=== PATIENT | female | born 2000 | race Caucasian/White ===

== ENCOUNTER 2018-01-17 13:40 | Emergency (ER) | payer OTHER ==
--- NOTE | 2018-01-17 14:12 | EDM.PDOC ---
ED HPI GENERAL MEDICAL PROBLEM - General Chief Complaint: Lower Extremity Injury/Pain Stated Complaint: LEFT LEG INJURY/NUMB Time Seen by Provider: 01/17/18 14:08 Source of Information: Reports: Patient History Limitations: Reports: No Limitations - History of Present Illness INITIAL COMMENTS - FREE TEXT/NARRATIVE: 17-year-old female presents to the ED with complaint of numbness and tingling in the distribution of her left lateral leg from the knee to the foot. She states she can't feel her great toe second toe her third toe. All numb. 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 She states this is 6 time that is dislocated. To back into place on her own. As well as she is wearing a knee immobilizer which is short but has metal producing on both the medial and lateral aspects of the brace. She is therefore suffering, peroneal nerve compression which is causing the numbness and tingling in the left lateral foot and leg. She usually wears a brace for a week to 10 days after dislocation to prevent it from dislocating easily again. Onset: Gradual Onset Date: 01/16/18 (Started since she dislocated her kneecap 2 days ago) Duration: Day(s): Location: Reports: Lower Extremity, Left (Left lateral leg and nose and tingling down to her) Quality: Reports: Ache, Other Severity: Moderate (Numbness and tingling) Improves with: Reports: None Worsens with: Reports: None Context: Reports: Other (Has been wearing a knee brace since dislocating her kneecap 2 days ago. Knee brace when we put it back on her leg has a metal component on each side to support the MCL and LCL ligaments but unfortunately is putting direct pressure on the common peroneal nerve over her fibular head.) . 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 She reports the left was dislocated at least 6 times in the past) Social & Family History - Living Situation & Occupation Living situation: Reports: Single Occupation: Employed Review of Systems - Review of Systems Review Of Systems: See Below Constitutional: Reports: No Symptoms Eyes: Reports: No Symptoms Ears: Reports: No Symptoms Nose: Reports: No Symptoms Mouth/Throat: Reports: No Symptoms Respiratory: Reports: No Symptoms Cardiovascular: Reports: No Symptoms GI/Abdominal: Reports: No Symptoms Genitourinary: Reports: No Symptoms Musculoskeletal: Reports: Other (Recent lateral dislocation of her left patella 2 days ago. Recurrent problem for her.) Skin: Reports: No Symptoms Neurological: Reports: Numbness, Paresthesia (Left lower extremity particularly with numbness and tingling in her first second and third toes.), Tingling (In the distribution of the common peroneal nerve left lower extremity) Psychiatric: Reports: No Symptoms ED EXAM, GENERAL - Physical Exam Exam: See Below Exam Limited By: No Limitations General Appearance: Alert, WD/WN, No Apparent Distress Peripheral Pulses: 3+: Posterior Tibial (L), Posterior Tibial (R), Dorsalis Pedis (L), Dorsalis Pedis (R) Neurological: Other ( has decreased sensation in the distribution of the common peroneal nerve particularly on the lateral aspect of her left foot both dorsally and plantar surfaces. She does not have a foot drop.) Skin Exam: Warm, Dry, Intact, Normal Color, No Rash Course - Vital Signs Last Recorded V/S: Last Vital Signs Temp 36.3 C 01/17/18 13:51 Pulse 109 H 01/17/18 13:51 Resp 16 01/17/18 13:51 BP 126/73 01/17/18 13:51 Pulse Ox 100 01/17/18 13:51 - Radiology Interpretation Free Text/Narrative:: 17-year-old female presents to the ED with numbness and tingling in the distribution of the common peroneal nerve left lower extremity. Of note she dislocated her left kneecap for the 6 time 2 days ago. She is wearing a short knee splint which contains metal bars to support the medial collateral ligament and the lateral collateral ligament. She usually wears this for a week to 10 days after she dislocated her patella which occurs almost once a year. When I ask up with the brace on identify that the metal component of the brace is pushing down on the common peroneal nerve over her fibular head. This is the source of her common peroneal nerve palsy and dysfunction. She will therefore discontinue using the brace and use a tape to keep keeping it In position and prevent it from this recent dislocating for the next 10 days. Her seizures and function should return over the next 3-5 days. 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 This is due to compression of the common peroneal nerve which is up near your knee over top of the fibula bone. Patient dislocation of your patella to the left side is been a recurrent problem for you may do start wearing a knee brace which contains steel supports to support the medial and lateral collateral ligaments of the knee. Unfortunately part of the braces pushing down on the common peroneal nerve of your left knee which is causing the numbness and tingling and perhaps even some weakness in the foot musculature has become peroneal nerve helps the Achilles tendon function. I would suggest to stop wearing the brace and use K tape as we discussed to support her knee from recurrent dislocation of the patella. As we discussed a vigorous exercise program to try and strengthen the medial quadriceps musculature is in order. There are surgical managements for recurrence dislocations of the kneecaps but I would opt for strengthen the musculature long before pursuing a surgical avenue of treatment.
== END 2018-01-17 14:42 | disposition home or self-care (01) ==
LOC: JD.ED 13:40
DX: G57.82 Other specified mononeuropathies of left lower limb (principal); Z79.899 Other long term (current) drug therapy
CPT/HCPCS: 99283; 99284

== ENCOUNTER 2021-04-16 06:56 | Inpatient (IN) | payer OTHER ==
[2021-04-16] MEDS ORDERED: Lidocaine 1% 50 ML MDV INJECT ONE (08:16)
[2021-04-16] MEDS ORDERED: Famotidine 20 MG Tab PO PRN (08:16)
[2021-04-16] MEDS ORDERED: Nalbuphine 10 MG/1 ML Vial IVPUSH PRN (08:16)
[2021-04-16] MEDS ORDERED: Ondansetron 4 MG/2 ML SDV IVPUSH PRN (08:16)
[2021-04-16] MEDS ORDERED: Calcium Carbonate 500 MG Tab.Chew PO PRN (08:16)
[2021-04-16] MEDS ORDERED: Oxytocin/Lactated Ringers 10 UNIT/1,000 ML BAG IV SCH ×2 (08:30)
--- NOTE | 2021-04-16 08:35 | PCM.LDHP ---
L&D History of Present Illness - General Date of Service: 04/16/21 Admit Problem/Dx: Patient Status Order with Admit Dx/Problem 04/16/21 08:16 Patient Status [ADT] Routine Admission Diagnosis/Problem Admission Diagnosis/Problem Source of Information: Patient History Limitations: Reports: No Limitations - History of Present Illness Introduction:: 20 yo at 39+2 weeks gestation admitted for elective induction of labor. She is GBS negative, blood type A +. She did have COVID-19 infection and was treated with Monoclonal Antibody IV infusion on 03/15/21 and recovered without complication. She has had Influenza and Tdap vaccines. Her last ultrasound on 03/28/21 revealed baby with EFW of 5 lb 15 oz (26%), BPP 8/8 and cephalic. labs showed RPR, HBsAg, HIV and Hep C all negative. GC/CT swabs negative. Good antibodies to Rubella and Varicella. She did the Prequel test and negative for Trisomies and XY sex chromosomes. 1 hour glucola was mildly elevated at 144 but 3 hour GTT was wnl and no elevated values. She does plan to breastfeed and would like baby circumcised. On admission, she was not having any contractions, NST category 1. Cervix 3 cm, 80% effaced, vertex presentation and 0 station. AROM was performed for small amount of fluid that looked clear, maybe a hint of meconium, will monitor further leakage. Will also start pitocin IV per protocol. - Related Data Allergies/Adverse Reactions: Allergies Allergy/AdvReac Type Severity Reaction Status Date / Time No Known Allergies Allergy Verified 01/17/18 13:48 Home Medications: Home Meds Vit No.78/Iron/Fa [Prenatabs FA] 1 tab PO DAILY 04/13/21 [History] Past Medical History - Past Health History Medical/Surgical History: Denies Medical/Surgical History HEENT History: Reports: Impaired Vision Musculoskeletal History: Reports: Other (See Below) Other Musculoskeletal History: left knee dislocations - Past Surgical History HEENT Surgical History: Reports: Oral Surgery Social & Family History - Family History Family Medical History: No Pertinent Family History - Tobacco Use Tobacco Use Within Last Twelve Months: Vaping (Stopped vaping with ) - Caffeine Use Caffeine Use: Reports: None - Alcohol Use Alcohol Use History: Yes Alcohol Use in Last Twelve Months: Yes Alcohol Use Comment: No alcohol during - Recreational Drug Use Recreational Drug Use: Yes Drug Use in Last 12 Months: Yes Recreational Drug Type: Reports: Marijuana/Hashish Recreational Drug Last Use: Prior to . Denies use during - Living Situation & Occupation Living situation: Reports: Single Occupation: Employed H&P Review of Systems - Review of Systems: Review Of Systems: See Below General: Reports: No Symptoms HEENT: Reports: No Symptoms Pulmonary: Reports: No Symptoms Cardiovascular: Reports: No Symptoms Gastrointestinal: Reports: No Symptoms Genitourinary: Reports: No Symptoms Musculoskeletal: Reports: No Symptoms Skin: Reports: No Symptoms Psychiatric: Reports: No Symptoms Neurological: Reports: No Symptoms Hematologic/Lymphatic: Reports: No Symptoms Immunologic: Reports: No Symptoms L&D Exam - Exam Exam: See Below - OB Specific Contraction Frequency (min): No contractions on admission Movement: Active Heart Tones: Present Heart Tones per Min: 140 Heart Rate (FHR) Variability: Moderate (6-25 bpm) Presentation: Vertex Estimated Weight: 7 lb - Freeman Score Freeman Score Cervix Position: Anterior Freeman Score Consistency: Soft Freeman Score Effacement: >80% Freeman Score Dilation: 3-4 cm Freeman Score 's Station: -1 ,0 Freeman Score Total: 11 - Exam General: Alert, Oriented, Cooperative HEENT: Mucosa Moist & [place], Pupils Equal Neck: Supple, Trachea Midline Lungs: Normal Respiratory Effort Cardiovascular: Regular Rate, Regular Rhythm GI/Abdominal Exam: Normal Bowel Sounds, Soft Rectal Exam: Deferred Genitourinary: Normal external exam, Enlarged uterus Back Exam: Normal Inspection, Full Range of Motion Extremities: Normal Inspection, No Pedal Edema Skin: Warm, Dry, Intact Neurological: Cranial Nerves Intact Psychiatric: Alert, Normal Affect, Normal Mood - Problem List (1) 39 weeks gestation of SNOMED Code(s): 74234761 ICD Code: Z3A.39 - 39 WEEKS GESTATION OF Status: Acute Current Visit: Yes (2) Encounter for elective induction of labor SNOMED Code(s): 598460926 ICD Code: Z34.90 - ENCNTR FOR SUPRVSN OF NORMAL , UNSP, UNSP TRIMESTER Status: Acute Current Visit: Yes (3) Personal history of COVID-19 SNOMED Code(s): 955995791187388041, 466434366473185607 ICD Code: Z86.16 - PERSONAL HISTORY OF COVID-19 Status: Acute Current Visit: Yes Problem List Initiated/Reviewed/Updated: Yes Orders Last 24hrs: Active Orders 24 hr Category Date Time Status Patient Status [ADT] Routine ADT 04/16/21 08:16 Ordered Activity as Tolerated [RC] PFP Care 04/16/21 08:16 Ordered Communication Order [RC] ASDIRECTED Care 04/16/21 08:16 Ordered Heart Tones [RC] ASDIRECTED Care 04/16/21 08:16 Ordered Non Stress Test [RC] PER UNIT ROUTINE Care 04/16/21 08:16 Ordered Intake and Output [RC] QSHIFT Care 04/16/21 08:17 Ordered Notify Provider [RC] PFP Care 04/16/21 08:16 Ordered Notify Provider [RC] PRN Care 04/16/21 08:16 Ordered Peripheral IV Care [RC] . DIRECTED Care 04/16/21 08:16 Ordered Vital Signs [RC] PER UNIT ROUTINE Care 04/16/21 08:16 Ordered Regular Diet [DIET] Diet 04/16/21 Breakfast Ordered CBC W/O DIFF,HEMOGRAM [HEME] Stat Lab 04/16/21 08:16 Ordered DRUG SCREEN, URINE [URCHEM] Stat Lab 04/16/21 08:16 Ordered RAPID PLASMA REAGIN,RPR [CHEM] Routine Lab 04/16/21 08:16 Ordered TYPE AND SCREEN [BBK] Stat Lab 04/16/21 08:16 Ordered Calcium Carbonate [Tums] Med 04/16/21 08:16 Ordered 1,000 mg PO Q2H PRN Famotidine [Pepcid] Med 04/16/21 08:16 Ordered 20 mg PO Q12H PRN Lactated Ringers [Ringers, Lactated] 1,000 ml Med 04/16/21 08:30 Ordered IV ASDIRECTED Lidocaine 1% [Xylocaine 1%] Med 04/16/21 08:16 Once 20 ml INJECT ONETIME ONE Nalbuphine [Nubain] Med 04/16/21 08:16 Ordered 10 mg IVPUSH Q2H PRN Ondansetron [Zofran] Med 04/16/21 08:16 Ordered 4 mg IVPUSH Q4H PRN Oxytocin/Lactated Ringers [Pitocin in LR 10 Units/1,000 Med 04/16/21 08:30 Ordered ML] 10 unit in 1,000 ml IV .CONTINUOUS Oxytocin/Lactated Ringers [Pitocin in LR 10 Units/1,000 Med 04/16/21 08:30 Ordered ML] 10 unit in 1,000 ml IV TITRATE Sodium Chloride 0.9% [Saline Flush] Med 04/16/21 09:00 Ordered 10 ml FLUSH 0900,2100 Electronic Heart Tones Ext w TOCO [WOMSER] Ot 04/16/21 08:16 Ordered Routine Electronic Heart Tones Internal [WOMSER] Per Unit Ot 04/16/21 08:16 Ordered Routine Peripheral IV Insertion Adult [OM.PC] Routine Ot 04/16/21 08:16 Ordered Telemetry Monitoring [WOMSER] Routine Ot 04/16/21 08:16 Ordered Resuscitation Status Routine Resus Stat 04/16/21 08:16 Ordered Medication Orders Calcium Carbonate/Glycine (Calcium Carbonate 500 Mg Tab.Chew) 1,000 mg PO Q2H PRN PRN Reason: Indigestion Famotidine (Famotidine 20 Mg Tab) 20 mg PO Q12H PRN PRN Reason: Heartburn Oxytocin/Lactated Ringer's (Pitocin In Lr 10 Units/1,000 Ml) 10 unit in 1,000 mls @ 12 mls/hr IV TITRATE STEPHANIE; Protocol Oxytocin/Lactated Ringer's (Pitocin In Lr 10 Units/1,000 Ml) 10 unit in 1,000 mls @ 500 mls/hr IV .CONTINUOUS STEPHANIE Lactated Ringer's (Ringers, Lactated) 1,000 mls @ 100 mls/hr IV ASDIRECTED [facility] Lidocaine HCl (Lidocaine 1% 50 Ml Mdv) 20 ml INJECT ONETIME ONE Stop: 04/16/21 08:17 Nalbuphine HCl (Nalbuphine 10 Mg/1 Ml Vial) 10 mg IVPUSH Q2H PRN PRN Reason: Pain Ondansetron HCl (Ondansetron 4 Mg/2 Ml Sdv) 4 mg IVPUSH Q4H PRN PRN Reason: Nausea/Vomiting Sodium Chloride (Sodium Chloride 0.9% 10 Ml Syringe) 10 ml FLUSH 0900,2100 [facility] Assessment/Plan Comment:: 20 yo at 39+2 weeks gestation admitted for elective induction of labor with favorable cervix. Freeman score is 11. GBS neg, blood type A pos. Plans to breast feed. Plan - pitocin induction per protocol and AROM also performed at 0815 to augment induction. Expectant management. Anticipate vaginal delivery. Would like to try natural childbirth without pain meds. Skin to skin after delivery if appropriate and delayed cord clamping. Plan circumcision of baby boy.
[2021-04-16] MEDS: Lactated Ringers 1,000 ML IV SCH ×3 (08:46→12:32)
[2021-04-16] MEDS ORDERED: Sodium Chloride 0.9% 10 ML Syringe FLUSH SCH (09:00)
[2021-04-16] MEDS ORDERED: fentaNYL 100 MCG/2 ML SDV EPIDUR PRN (10:32)
[2021-04-16] MEDS ORDERED: Bupivacaine/fentaNYL/NS 100 ML Bag EPIDUR PRN (10:32)
[2021-04-16] MEDS ORDERED: Lidocaine 1.5% with EPINEPHrine 1:200,000 5 ML Amp ONE (10:32)
[2021-04-16] MEDS ORDERED: diphenhydrAMINE 50 MG/ML SDV IVPUSH PRN (10:32)
[2021-04-16] MEDS ORDERED: ePHEDrine 50 MG/ML SDV IVPUSH PRN (10:32)
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
--- NOTE | 2021-04-16 16:42 | PCM.DEL ---
L & D Note - General Info Date of Service: 04/16/21 Mother's Due Date: 04/21/21 - Delivery Note Labor: Augmented by Oxytocin, Induced by ARM Cervical Ripening Method: Oxytocin Delivery Outcome: Livebirth Delivery Method: Spontaneous Vaginal Delivery-Single Infant Delivery Mode: Spontaneous Presentation: Right Occiput Anterior (GRISEL) Nuchal Cord: None Prep: Povidone-Iodine (Betadine Anesthesia Type: Epidural Anesthetic: Lidocaine (Xylocaine) 1% Plain Local Anesthetic Volume: Other (20 ml) Amniotic Fluid Description: Clear Episiotomy Type: None Laceration: 2nd Degree Suture type: Vicryl Suture size: 3-0 Placenta: Intact, Spontaneous Cord: 3 Vessels Estimated Blood Loss: 250 Resuscitation Needed: No : Bulb Syringe, Stimulated, Warmed, [place] Used Provider: Paty Foster Score 1 min: 8 Score 5 min: 9 Delivery Comments (Free Text/Narrative):: 20 yo at 39+2 weeks gestation admitted for elective induction of labor. She is GBS negative, blood type A +. She did have COVID-19 infection and was treated with Monoclonal Antibody IV infusion on 03/15/21 and recovered without complication. She has had Influenza and Tdap vaccines. Her last ultrasound on 03/28/21 revealed baby with EFW of 5 lb 15 oz (26%), BPP 8/8 and cephalic. labs showed RPR, HBsAg, HIV and Hep C all negative. GC/CT swabs negative. Good antibodies to Rubella and Varicella. She did the Prequel test and negative for Trisomies and XY sex chromosomes. 1 hour glucola was mildly elevated at 144 but 3 hour GTT was wnl and no elevated values. She does plan to breastfeed and would like baby circumcised. On admission, she was not having any contractions, NST category 1. Cervix 3 cm, 80% effaced, vertex presentation and 0 station. AROM was performed for small amount of fluid that looked clear, maybe a hint of meconium, will monitor further leakage. Will also start pitocin IV per protocol. She started having contractions after the AROM and pitocin was initially started but then stopped due to tachysystole. She requested epidural and it was placed at noon and she had fair relief, but continued to feel contractions on the right side. Contractions started spacing out and pitocin was restarted. She progressed well and was completely dilated at about 1430 and we prepared for pushing. She started pushing at about 1445 and did well and baby tolerated second stage of labor well. Head was delivered from GRISEL presentation, there was no nuchal cord and then the rest of the baby delivered without problem. Time of delivery was 1548 and we had a baby boy. He cried at the perineum, was placed skin to skin on mother's abdomen and drying and suction and stimulation performed. Once the cord stopped pulsating, it was clamped and cut. Apgars 8 and 9 at 1 and 5 minutes respectively. weight was 3510 grams (7 lb 12 oz). Placenta delivered spontaneously at 1552 and was complete. 3 vessels in the cord. Pitocin IV bolus was started. She had a second degree perineal laceration that was repaired in the usual manner with 3-0 Vicryl. Some blood clots were expressed from the uterus after repair was completed and EBL was 200 ml. Both Mom and baby were left in the delivery room in stable condition. Mom plans to breastfeed. Induction Criteria - Freeman Score Freeman Score Dilation: 3-4 cm Freeman Score Effacement: >80% Freeman Score Infant's Station: -1 ,0 Freeman Score Consistency: Soft Freeman Score Cervix Position: Anterior Freeman Score Total: 11 Freeman Score Presenting Part: Reports: Cephalic - Induction Gestational Age >/= 39 wks: Yes Estimated Pelvis: Reports: Adequate Reassuring Monitoring Strip: Yes Absence of Tachy Systole: Yes - Augmentation Estimated Pelvis: Reports: Adequate Weight Estimated:: Reports: AGA Reassuring Monitoring Strip: Yes Absence of Tachy Systole: Yes - General Info Date of Service: 04/16/21 Admission Dx/Problem (Free Text): Patient Status Order with Admit Dx/Problem 04/16/21 08:16 Patient Status [ADT] Routine Admission Diagnosis/Problem Admission Diagnosis/Problem Functional Status: Reports: Pain Controlled, Tolerating Diet - Review of Systems General: Reports: No Symptoms HEENT: Reports: No Symptoms Pulmonary: Reports: No Symptoms Cardiovascular: Reports: No Symptoms Gastrointestinal: Reports: No Symptoms Genitourinary: Reports: No Symptoms Musculoskeletal: Reports: No Symptoms Skin: Reports: No Symptoms Neurological: Reports: No Symptoms Psychiatric: Reports: No Symptoms - Patient Data Vitals - Most Recent: Last Vital Signs Temp 36.5 C 04/16/21 07:20 Pulse Resp 16 04/16/21 07:20 BP 122/77 04/16/21 07:20 Pulse Ox 97 04/16/21 07:20 Weight - Most Recent: 76.521 kg I&O - Last 24 Hours: Intake & Output 04/16/21 04/16/21 04/16/21 06:59 14:59 22:59 Intake Total 2000 Output Total 700 Balance 1300 Lab Results Last 24 Hours: Laboratory Results - last 24 hr 04/16/21 04/16/21 04/16/21 Range/Units 08:35 08:35 08:45 WBC 17.13 H (3.98-10.04) K/mm3 RBC 4.07 (3.98-5.22) M/mm3 Hgb 12.4 (11.2-15.7) gm/dl Hct 37.7 (34.1-44.9) % MCV 92.6 (79.4-94.8) fl MCH 30.5 (25.6-32.2) pg MCHC 32.9 (32.2-35.5) g/dl RDW Std Deviation 47.6 H (36.4-46.3) fL Plt Count 267 (182-369) K/mm3 MPV 10.5 (9.4-12.3) fl Urine Opiates Screen Negative (UAJCHR=523) Ur Buprenorphine Scrn Negative (CUTOFF=10) Ur Oxycodone Screen Negative (DWD5JW=479) Urine Methadone Screen Negative (BGFMTH=543) Ur Propoxyphene Screen Negative (LKCCRI=270) Ur Barbiturates Screen Negative (ZJKPRN=943) Ur Tricyclics Screen Negative (MMOYWL=484) Ur Phencyclidine Scrn Negative (CUTOFF=25) Ur Amphetamine Screen Negative (LLKDIG=176) U Methamphetamines Scrn Negative (VIUBZB=682) U Benzodiazepines Scrn Negative (VRVTPK=721) U Cocaine Metab Screen Negative (GXFLTJ=579) U Marijuana (THC) Screen Negative (CUTOFF=50) Blood Type A POSITIVE Gel Antibody Screen Negative Med Orders - Current: Current Medications Calcium Carbonate/Glycine (Calcium Carbonate 500 Mg Tab.Chew) 1,000 mg PO Q2H PRN PRN Reason: Indigestion Diphenhydramine HCl (Diphenhydramine 50 Mg/Ml Sdv) 25 mg IVPUSH Q6H PRN PRN Reason: pruritis Ephedrine Sulfate (Ephedrine 50 Mg/Ml Sdv) 5 mg IVPUSH ASDIRECTED PRN PRN Reason: Hypotension Famotidine (Famotidine 20 Mg Tab) 20 mg PO Q12H PRN PRN Reason: Heartburn Last Admin: 04/16/21 08:35 Dose: 20 mg Documented by: Fentanyl (Fentanyl 100 Mcg/2 Ml Sdv) 100 mcg EPIDUR Q3H PRN PRN Reason: Pain Last Admin: 04/16/21 11:26 Dose: 100 mcg Documented by: Fentanyl/Bupivacaine HCl (Bupivacaine/Fentanyl/Ns 100 Ml Bag) 100 ml EPIDUR ASDIRECTED PRN PRN Reason: Pain Last Admin: 04/16/21 11:26 Dose: 100 ml Documented by: Oxytocin/Lactated Ringer's (Pitocin In Lr 10 Units/1,000 Ml) 10 unit in 1,000 mls @ 12 mls/hr IV TITRATE STEPHANIE; Protocol Last Titration: 04/16/21 15:58 Dose: 166.5 munits/min, 999 mls/hr Documented by: Oxytocin/Lactated Ringer's (Pitocin In Lr 10 Units/1,000 Ml) 10 unit in 1,000 mls @ 500 mls/hr IV .CONTINUOUS STEPHANIE Lactated Ringer's (Ringers, Lactated) 1,000 mls @ 100 mls/hr IV ASDIRECTED STEPHANIE Last Admin: 04/16/21 12:32 Dose: 100 mls/hr Documented by: Nalbuphine HCl (Nalbuphine 10 Mg/1 Ml Vial) 10 mg IVPUSH Q2H PRN PRN Reason: Pain Ondansetron HCl (Ondansetron 4 Mg/2 Ml Sdv) 4 mg IVPUSH Q4H PRN PRN Reason: Nausea/Vomiting Last Admin: 04/16/21 11:00 Dose: 4 mg Documented by: Sodium Chloride (Sodium Chloride 0.9% 10 Ml Syringe) 10 ml FLUSH 0900,2100 STEPHANIE Last Admin: 04/16/21 10:20 Dose: Not Given Documented by: Discontinued Medications Lidocaine HCl (Lidocaine 1% 50 Ml Mdv) 20 ml INJECT ONETIME ONE Stop: 04/16/21 08:17 Last Admin: 04/16/21 15:58 Dose: 20 ml Documented by: - Exam Urinary Catheter Total Time: 0Days 1Hours General: Alert, Oriented, Cooperative, No Acute Distress HEENT: Pupils Equal, Mucous Membr. Moist/[place] Neck: Supple Lungs: Normal Respiratory Effort Cardiovascular: Regular Rate, Regular Rhythm GI/Abdominal Exam: Normal Bowel Sounds, No Distention (Female) Exam: Enlarged Uterus (Uterus firm, below umbilicus), Vaginal Bleeding Back Exam: Normal Inspection, Full Range of Motion Extremities: Normal Inspection, Normal Range of Motion, No Pedal Edema, Normal Capillary Refill Skin: Warm, Dry, Intact Neurological: No New Focal Deficit Psy/Mental Status: Alert, Normal Affect, Normal Mood - Problem List & Annotations (1) 39 weeks gestation of SNOMED Code(s): 77410021 Code(s): Z3A.39 - 39 WEEKS GESTATION OF Status: Acute Current Visit: Yes (2) Encounter for elective induction of labor SNOMED Code(s): 105321366 Code(s): Z34.90 - ENCNTR FOR SUPRVSN OF NORMAL , UNSP, UNSP TRIMESTER Status: Acute Current Visit: Yes (3) Personal history of COVID-19 SNOMED Code(s): 268571598384133781, 193046163986150470 Code(s): Z86.16 - PERSONAL HISTORY OF COVID-19 Status: Acute Current Visit: Yes (4) Normal spontaneous vaginal delivery SNOMED Code(s): 82770063, 150018010 Code(s): O80 - ENCOUNTER FOR FULL-TERM UNCOMPLICATED DELIVERY Status: Acute Current Visit: Yes - Problem List Review Problem List Initiated/Reviewed/Updated: Yes - My Orders Last 24 Hours: My Active Orders 04/16/21 Breakfast Regular Diet [DIET] 04/16/21 08:16 Patient Status [ADT] Routine Activity as Tolerated [RC] PFP Communication Order [RC] ASDIRECTED Heart Tones [RC] ASDIRECTED Notify Provider [RC] PRN Calcium Carbonate [Tums] 1,000 mg PO Q2H PRN Famotidine [Pepcid] 20 mg PO Q12H PRN Nalbuphine [Nubain] 10 mg IVPUSH Q2H PRN Ondansetron [Zofran] 4 mg IVPUSH Q4H PRN Electronic Heart Tones Ext w TOCO [WOMSER] Routine Electronic Heart Tones Internal [WOMSER] Per Unit Routine Peripheral IV Insertion Adult [OM.PC] Routine Telemetry Monitoring [WOMSER] Routine Resuscitation Status Routine 04/16/21 08:17 Intake and Output [RC] QSHIFT 04/16/21 08:30 Lactated Ringers [Ringers, Lactated] 1,000 ml IV ASDIRECTED Oxytocin/Lactated Ringers [Pitocin in LR 10 Units/1,000 ML] 10 unit in 1,000 ml IV .CONTINUOUS Oxytocin/Lactated Ringers [Pitocin in LR 10 Units/1,000 ML] 10 unit in 1,000 ml IV TITRATE 04/16/21 08:35 RAPID PLASMA REAGIN,RPR [CHEM] Routine 04/16/21 09:00 Sodium Chloride 0.9% [Saline Flush] 10 ml FLUSH 0900,2100 04/16/21 16:28 Patient Status Manage Transfer [TRANSFER] Routine - Assessment Assessment:: Term at 39+2 weeks, after elective induction. GBS negative. Blood type A pos. Second degree perineal laceration. EBL 200 ml - Plan Plan:: 1. Routine care 2. support and education. 3. Plan for circumcision for baby.
[2021-04-16] MEDS ORDERED: Acetaminophen 325 MG Tab PO PRN (17:49)
[2021-04-16] MEDS ORDERED: Benzocaine/Menthol 20%-0.5% Spray 78 GM Cannister TOP PRN (17:49)
[2021-04-16] MEDS: Docusate Sodium 100 MG Cap PO PRN (18:03)
[2021-04-16] MEDS: Ibuprofen 600 MG Tab PO PRN (18:03)
[2021-04-16] MEDS: Witch Hazel Medicated Pads 40/Jar TOP PRN (18:03)
[2021-04-17] MEDS: Ibuprofen 600 MG Tab PO PRN ×2 (06:27→20:36)
--- NOTE | 2021-04-17 13:55 | PCM.PNPP ---
- General Info Date of Service: 04/17/21 Admission Dx/Problem (Free Text): Patient Status Order with Admit Dx/Problem 04/16/21 08:16 Patient Status [ADT] Routine Admission Diagnosis/Problem Admission Diagnosis/Problem Functional Status: Reports: Pain Controlled, Tolerating Diet, Ambulating, Urinating - Review of Systems General: Reports: No Symptoms HEENT: Reports: No Symptoms Pulmonary: Reports: No Symptoms Cardiovascular: Reports: No Symptoms Gastrointestinal: Reports: No Symptoms Genitourinary: Reports: No Symptoms, Other (Uterine cramping during . ) Musculoskeletal: Reports: No Symptoms Skin: Reports: No Symptoms Neurological: Reports: No Symptoms Psychiatric: Reports: No Symptoms - General Info Date of Service: 04/17/21 - Patient Data Vital Signs - Most Recent: Last Vital Signs Temp 36.9 C 04/17/21 04:33 Pulse 71 04/17/21 04:33 Resp 12 04/17/21 04:33 BP 101/70 04/17/21 04:33 Pulse Ox 97 04/17/21 04:33 Weight - Most Recent: 76.521 kg I&O - Last 24 Hours: Intake & Output 04/16/21 04/17/21 04/17/21 22:59 06:59 14:59 Intake Total 2500 Output Total 107 Balance 2393 Lab Results - Last 24 Hours: Laboratory Results - last 24 hr 04/16/21 04/17/21 Range/Units 08:35 07:01 WBC 21.76 H (3.98-10.04) K/mm3 RBC 3.85 L (3.98-5.22) M/mm3 Hgb 11.6 (11.2-15.7) gm/dl Hct 35.9 (34.1-44.9) % MCV 93.2 (79.4-94.8) fl MCH 30.1 (25.6-32.2) pg MCHC 32.3 (32.2-35.5) g/dl RDW Std Deviation 47.8 H (36.4-46.3) fL Plt Count 266 (182-369) K/mm3 MPV 10.6 (9.4-12.3) fl RPR Non-reactive (NONREACTIVE) Med Orders - Current: Current Medications Acetaminophen (Acetaminophen 325 Mg Tab) 650 mg PO Q4H PRN PRN Reason: mild pain or fever Benzocaine/Menthol (Benzocaine/Menthol 20%-0.5% [place] 78 Gm Cannister) 0 gm TOP ASDIRECTED PRN PRN Reason: Perineal Comfort Measure Last Admin: 04/16/21 18:03 Dose: 1 canister Documented by: Docusate Sodium (Docusate Sodium 100 Mg Cap) 100 mg PO BID PRN PRN Reason: Constipation Last Admin: 04/16/21 18:03 Dose: 100 mg Documented by: Oxytocin/Lactated Ringer's (Pitocin In Lr 10 Units/1,000 Ml) 10 unit in 1,000 mls @ 500 mls/hr IV .CONTINUOUS STEPHANIE Last Admin: 04/16/21 16:44 Dose: 500 mls/hr Documented by: Ibuprofen (Ibuprofen 600 Mg Tab) 600 mg PO Q6H PRN PRN Reason: Mild pain or fever Last Admin: 04/17/21 06:27 Dose: 600 mg Documented by: Prenat Multivit/[place]/Iron/Folic Ac ( Multivitamin With Calcium/Folic Acid/Iron Tab) 1 each PO DAILY [facility] Jeniffer Oro (Witch Preethi Medicated Pads 40/Jar) 1 pad TOP ASDIRECTED PRN PRN Reason: Perineal Comfort Measure Last Admin: 04/16/21 18:03 Dose: 1 tub Documented by: Discontinued Medications Calcium Carbonate/Glycine (Calcium Carbonate 500 Mg Tab.Chew) 1,000 mg PO Q2H PRN PRN Reason: Indigestion Diphenhydramine HCl (Diphenhydramine 50 Mg/Ml Sdv) 25 mg IVPUSH Q6H PRN PRN Reason: pruritis Ephedrine Sulfate (Ephedrine 50 Mg/Ml Sdv) 5 mg IVPUSH ASDIRECTED PRN PRN Reason: Hypotension Famotidine (Famotidine 20 Mg Tab) 20 mg PO Q12H PRN PRN Reason: Heartburn Last Admin: 04/16/21 08:35 Dose: 20 mg Documented by: Fentanyl (Fentanyl 100 Mcg/2 Ml Sdv) 100 mcg EPIDUR Q3H PRN PRN Reason: Pain Last Admin: 04/16/21 11:26 Dose: 100 mcg Documented by: Fentanyl/Bupivacaine HCl (Bupivacaine/Fentanyl/Ns 100 Ml Bag) 100 ml EPIDUR ASDIRECTED PRN PRN Reason: Pain Last Admin: 04/16/21 11:26 Dose: 100 ml Documented by: Oxytocin/Lactated Ringer's (Pitocin In Lr 10 Units/1,000 Ml) 10 unit in 1,000 mls @ 12 mls/hr IV TITRATE STEPHANIE; Protocol Last Titration: 04/16/21 15:58 Dose: 166.5 munits/min, 999 mls/hr Documented by: Lactated Ringer's (Ringers, Lactated) 1,000 mls @ 100 mls/hr IV ASDIRECTED [facility] Last Admin: 04/16/21 12:32 Dose: 100 mls/hr Documented by: Lidocaine HCl (Lidocaine 1% 50 Ml Mdv) 20 ml INJECT ONETIME ONE Stop: 04/16/21 08:17 Last Admin: 04/16/21 15:58 Dose: 20 ml Documented by: Nalbuphine HCl (Nalbuphine 10 Mg/1 Ml Vial) 10 mg IVPUSH Q2H PRN PRN Reason: Pain Ondansetron HCl (Ondansetron 4 Mg/2 Ml Sdv) 4 mg IVPUSH Q4H PRN PRN Reason: Nausea/Vomiting Last Admin: 04/16/21 11:00 Dose: 4 mg Documented by: Sodium Chloride (Sodium Chloride 0.9% 10 Ml Syringe) 10 ml FLUSH 0900,2100 [facility] Last Admin: 04/16/21 10:20 Dose: Not Given Documented by: - Infant Interaction Disposition, : [place] at Bedside Interaction: Holding Feeding: Attempted ; Nursed Fair/Poor, Difficulty with Latch-on Support Person: Significant Other - Recovery Exam Fundal Tone: Firm Fundal Level: 2 Fingerbreadths Below Umbilicus Fundal Placement: Midline Lochia Amount: Scant Lochia Color: Rubra/Red Perineum Description: Other (see below) Other Perinuem Description: Second degree laceration Bladder Status: Voiding Urinary Elimination: Voided - Exam General: Alert, Oriented, No Acute Distress HEENT: Pupils Equal, Pupils Reactive, Mucous Membr. Moist/[place] Neck: Supple Lungs: Normal Respiratory Effort Cardiovascular: Regular Rate, Regular Rhythm GI/Abdominal Exam: Normal Bowel Sounds, Soft, No Distention Extremities: Normal Range of Motion, Non-Tender, No Pedal Edema, Normal Capillary Refill Skin: Warm, Dry, Intact Wound/Incisions: Healing Well Neurological: No New Focal Deficit Psy/Mental Status: Alert, Normal Affect, Normal Mood - Problem List & Annotations (1) 39 weeks gestation of SNOMED Code(s): 61368459 Code(s): Z3A.39 - 39 WEEKS GESTATION OF Status: Acute Current Visit: Yes (2) Encounter for elective induction of labor SNOMED Code(s): 099748359 Code(s): Z34.90 - ENCNTR FOR SUPRVSN OF NORMAL , UNSP, UNSP TRIMESTER Status: Acute Current Visit: Yes (3) Personal history of COVID-19 SNOMED Code(s): 391141224924733967, 398028429888538012 Code(s): Z86.16 - PERSONAL HISTORY OF COVID-19 Status: Acute Current Visit: Yes (4) Normal spontaneous vaginal delivery SNOMED Code(s): 99288985, 392163214 Code(s): O80 - ENCOUNTER FOR FULL-TERM UNCOMPLICATED DELIVERY Status: Acute Current Visit: Yes (5) Breast feeding status of mother SNOMED Code(s): 946794555 Code(s): Z39.1 - ENCOUNTER FOR CARE AND EXAMINATION OF LACTATING MOTHER Status: Acute Current Visit: Yes - Problem List Review Problem List Initiated/Reviewed/Updated: Yes - My Orders Last 24 Hours: My Active Orders 04/16/21 17:49 Acetaminophen [TylenoL] 650 mg PO Q4H PRN Benzocaine/Menthol [Dermoplast Pain Relief 20%-0.5% [place]] See Dose Instructions TOP ASDIRECTED PRN Docusate Sodium [Colace] 100 mg PO BID PRN Ibuprofen [Motrin] 600 mg PO Q6H PRN witch Preethi [Tucks] 1 pad TOP ASDIRECTED PRN Heat Therapy [OM.PC] PRN 04/16/21 17:49 Patient Status [ADT] Routine Activity as Tolerated [RC] PER UNIT ROUTINE May Shower [RC] ASDIRECTED Up ad [place] [RC] ASDIRECTED Vital Signs [RC] 03,09,15,21 Assess Lochia [WOMSER] Per Unit Routine Assess Uterine Involution [WOMSER] Per Unit Routine Breast Pump [WOMSER] Per Unit Routine Medication Administration Instruction [OM.PC] Routine Perineal Care [OM.PC] Per Unit Routine Peripheral IV Discontinue [OM.PC] Routine Sitz Bath [OM.PC] Per Unit Routine 04/17/21 09:00 Vit with Ca/FA/Iron [ Plus Iron] 1 each PO DAILY 04/17/21 17:49 Heat Therapy [OM.PC] PRN - Assessment Assessment:: Term at 39+2 weeks, after elective induction. GBS negative. Blood type A pos. Second degree perineal laceration. EBL 200 ml - no nipple pain or bruising. Some difficulty with latch today. Has been performing hand expression to get colostrum. - Plan Plan:: 1. Routine care 2. support and education. 3. Circumcision for baby completed today.
--- NOTE | 2021-04-17 14:16 | PCM48HPAN ---
Post Anesthesia Note - EVALUATION WITHIN 48HRS OF ANESTHETIC Vital Signs in Normal Range: Yes Patient Participated in Evaluation: Yes Respiratory Function Stable: Yes Airway Patent: Yes Cardiovascular Function Stable: Yes Hydration Status Stable: Yes Pain Control Satisfactory: Yes Nausea and Vomiting Control Satisfactory: Yes Mental Status Recovered: Yes Vital Signs: Last Vital Signs Temp 36.9 C 04/17/21 04:33 Pulse 71 04/17/21 04:33 Resp 12 04/17/21 04:33 BP 101/70 04/17/21 04:33 Pulse Ox 97 04/17/21 04:33
[2021-04-17] MEDS: Docusate Sodium 100 MG Cap PO PRN (20:37)
[2021-04-17] MEDS: Witch Hazel Medicated Pads 40/Jar TOP PRN (21:05)
[2021-04-18] MEDS: Prenatal Multivitamin with Calcium/Folic Acid/Iron Tab PO SCH ×2 (02:10→08:16)
--- NOTE | 2021-04-18 22:33 | PCM.DCSUM1 ---
Discharge Summary - Hospital Course Free Text/Narrative:: 20 yo at 39+2 weeks gestation admitted for elective induction of labor. She is GBS negative, blood type A +. She did have COVID-19 infection and was treated with Monoclonal Antibody IV infusion on 03/15/21 and recovered without complication. She has had Influenza and Tdap vaccines. Her last ultrasound on 03/28/21 revealed baby with EFW of 5 lb 15 oz (26%), BPP 8/8 and cephalic. labs showed RPR, HBsAg, HIV and Hep C all negative. GC/CT swabs negative. Good antibodies to Rubella and Varicella. She did the Prequel test and negative for Trisomies and XY sex chromosomes. 1 hour glucola was mildly elevated at 144 but 3 hour GTT was wnl and no elevated values. She does plan to breastfeed and would like baby circumcised. On admission, she was not having any contractions, NST category 1. Cervix 3 cm, 80% effaced, vertex presentation and 0 station. AROM was performed for small amount of fluid that looked clear, maybe a hint of meconium, will monitor further leakage. Will also start pitocin IV per protocol. She started having contractions after the AROM and pitocin was initially started but then stopped due to tachysystole. She requested epidural and it was placed at noon and she had fair relief, but continued to feel contractions on the right side. Contractions started spacing out and pitocin was restarted. She progressed well and was completely dilated at about 1430 and we prepared for pushing. She started pushing at about 1445 and did well and baby tolerated second stage of labor well. Head was delivered from GRISEL presentation, there was no nuchal cord and then the rest of the baby delivered without problem. Time of delivery was 1548 and we had a baby boy. He cried at the perineum, was placed skin to skin on mother's abdomen and drying and suction and stimulation performed. Once the cord stopped pulsating, it was clamped and cut. Apgars 8 and 9 at 1 and 5 minutes respectively. weight was 3510 grams (7 lb 12 oz). Placenta delivered spontaneously at 1552 and was complete. 3 vessels in the cord. Pitocin IV bolus was started. She had a second degree perineal laceration that was repaired in the usual manner with 3-0 Vicryl. Some blood clots were expressed from the uterus after repair was completed and EBL was 200 ml. Both Mom and baby were left in the delivery room in stable condition. Mom plans to breastfeed. Bleeding has been light and no further clots. She has some cramping with , and has been using ibuprofen. SHe has been attempting , but baby is not latching and staying latched, will only suck a couple of times. She has been hand expressing regularly and getting 2-5 ml combined from both breasts and feeding with cup. Baby has a tongue tie and she would really like to BF, so recommended that she try to get in with Dr. Brianna De Leon for frenotomy. Denies nipple pain or bruising. Diagnosis: Stroke: No Modified Irving Scale: No Symptoms at All Modified Hills[place] Scale Score: 0 - Discharge Data Discharge Date: 04/18/21 Discharge Disposition: Home, Self-Care 01 Condition: Good - Referral to Home Health Primary Care Physician: Paty Foster MD - Discharge Diagnosis/Problem(s) (1) 39 weeks gestation of SNOMED Code(s): 82057062 ICD Code: Z3A.39 - 39 WEEKS GESTATION OF Status: Acute (2) Encounter for elective induction of labor SNOMED Code(s): 446167864 ICD Code: Z34.90 - ENCNTR FOR SUPRVSN OF NORMAL , UNSP, UNSP TRIMES TER Status: Acute (3) Personal history of COVID-19 SNOMED Code(s): 290274182643275032, 659237113721747069 ICD Code: Z86.16 - PERSONAL HISTORY OF COVID-19 Status: Acute (4) Normal spontaneous vaginal delivery SNOMED Code(s): 44656241, 385629821 ICD Code: O80 - ENCOUNTER FOR FULL-TERM UNCOMPLICATED DELIVERY Status: Acute (5) Breast feeding status of mother SNOMED Code(s): 578683898 ICD Code: Z39.1 - ENCOUNTER FOR CARE AND EXAMINATION OF LACTATING MOTHER Status: Acute - Patient Instructions Diet: Usual Diet as Tolerated, Drink 8-10+ Glasses/Day Activity: As Tolerated Driving: May Drive Today Showering/Bathing: May Shower Notify Provider of: Fever, Increased Pain, Swelling and Redness, Drainage, Nausea and/or Vomiting - Discharge Plan *PRESCRIPTION DRUG MONITORING PROGRAM REVIEWED*: No *COPY OF PRESCRIPTION DRUG MONITORING REPORT IN PATIENT AIDAN: No Home Medications: Home Meds Vit No.78/Iron/Fa [Prenatabs FA] 1 tab PO DAILY 04/13/21 [History] Acetaminophen [Tylenol] 650 mg PO Q4H PRN tablet 04/17/21 [Rx] Benzocaine/Menthol [Dermoplast Pain Relief 20%-0.5% Farrell] 1 applic TOP ASDIRECTED PRN canister 04/17/21 [Rx] Docusate Sodium [Colace] 100 mg PO BID PRN cap 04/17/21 [Rx] Ibuprofen [Motrin] 600 mg PO Q6H PRN tablet 04/17/21 [Rx] jeniffer Delores [Tucks] 1 pad TOP ASDIRECTED PRN pad 04/17/21 [Rx] Oxygen Therapy Mode: Room Air Patient Handouts: , Exclusive , Breast Pumping Tips, and Low Milk Supply, and Medicine Use, Hand Expression of Breast Milk, and Mastitis, and Breast Care, and Thrush, How to Keep Your Breast Pump Kit Clean - CDC, and Cracked or Sore Nipples, Eating Plan for Women, Storing Breast Milk Referrals: Paty Foster MD [Primary Care Provider] - - Discharge Summary/Plan Comment DC Time >30 min.: No Total # of Minutes for Discharge Time: 20 Discharge Summary/Plan Comment: 20 yo at 39+2 weeks gestation admitted for elective induction of labor. She is GBS negative, blood type A +. She did have COVID-19 infection and was treated with Monoclonal Antibody IV infusion on 03/15/21 and recovered without complication. She has had Influenza and Tdap vaccines. Her last ultrasound on 03/28/21 revealed baby with EFW of 5 lb 15 oz (26%), BPP 8/8 and cephalic. labs showed RPR, HBsAg, HIV and Hep C all negative. GC/CT swabs negative. Good antibodies to Rubella and Varicella. She did the Prequel test and negative for Trisomies and XY sex chromosomes. 1 hour glucola was mildly elevated at 144 but 3 hour GTT was wnl and no elevated values. She does plan to breastfeed and would like baby circumcised. On admission, she was not having any contractions, NST category 1. Cervix 3 cm, 80% effaced, vertex presentation and 0 station. AROM was performed for small amount of fluid that looked clear, maybe a hint of meconium, will monitor further leakage. Will also start pitocin IV per protocol. She started having contractions after the AROM and pitocin was initially started but then stopped due to tachysystole. She requested epidural and it was placed at noon and she had fair relief, but continued to feel contractions on the right side. Contractions started spacing out and pitocin was restarted. She progressed well and was completely dilated at about 1430 and we prepared for pushing. She started pushing at about 1445 and did well and baby tolerated second stage of labor well. Head was delivered from GRISEL presentation, there was no nuchal cord and then the rest of the baby delivered without problem. Time of delivery was 1548 and we had a baby boy. He cried at the perineum, was placed skin to skin on mother's abdomen and drying and suction and stimulation performed. Once the cord stopped pulsating, it was clamped and cut. Apgars 8 and 9 at 1 and 5 minutes respectively. weight was 3510 grams (7 lb 12 oz). Placenta delivered spontaneously at 1552 and was complete. 3 vessels in the cord. Pitocin IV bolus was started. She had a second degree perineal laceration that was repaired in the usual manner with 3-0 Vicryl. Some blood clots were expressed from the uterus after repair was completed and EBL was 200 ml. Both Mom and baby were left in the delivery room in stable condition. Mom plans to breastfeed. Bleeding has been light and no further clots. She has some cramping with , and has been using ibuprofen. SHe has been attempting , but baby is not latching and staying latched, will only suck a couple of times. She has been hand expressing regularly and getting 2-5 ml combined from both breasts and feeding with cup. Baby has a tongue tie and she would really like to BF, so recommended that she try to get in with Dr. Brianna De Leon for frenotomy. Denies nipple pain or bruising. A/P: 1. with second degree perineal tear - routine care. Will follow up in clinic in 6 weeks. Continue vitamin with . 2. - baby has tongue tie so is not latching and staying latched - continue manual expression of breasts to feed colostrum and will set up with clinic. Look into getting tongue tie clipped. - General Info Date of Service: 04/18/21 Admission Dx/Problem (Free Text: Patient Status Order with Admit Dx/Problem 04/16/21 08:16 Patient Status [ADT] Routine Admission Diagnosis/Problem Admission Diagnosis/Problem Functional Status: Reports: Pain Controlled, Tolerating Diet, Ambulating, Urinating - Review of Systems General: Reports: No Symptoms HEENT: Reports: No Symptoms Pulmonary: Reports: No Symptoms Cardiovascular: Reports: No Symptoms Gastrointestinal: Reports: No Symptoms Genitourinary: Reports: No Symptoms Musculoskeletal: Reports: No Symptoms Skin: Reports: No Symptoms Neurological: Reports: No Symptoms - Patient Data Vitals - Most Recent: Last Vital Signs Temp 36.9 C 04/18/21 08:04 Pulse 71 04/18/21 08:04 Resp 16 04/18/21 08:04 BP 112/65 04/18/21 08:04 Pulse Ox 97 04/18/21 08:04 Weight - Most Recent: 76.521 kg Med Orders - Current: Current Medications Discontinued Medications Acetaminophen (Acetaminophen 325 Mg Tab) 650 mg PO Q4H PRN PRN Reason: mild pain or fever Benzocaine/Menthol (Benzocaine/Menthol 20%-0.5% Farrell 78 Gm Cannister) 0 gm TOP ASDIRECTED PRN PRN Reason: Perineal Comfort Measure Last Admin: 04/16/21 18:03 Dose: 1 canister Documented by: Calcium Carbonate/Glycine (Calcium Carbonate 500 Mg Tab.Chew) 1,000 mg PO Q2H PRN PRN Reason: Indigestion Diphenhydramine HCl (Diphenhydramine 50 Mg/Ml Sdv) 25 mg IVPUSH Q6H PRN PRN Reason: pruritis Docusate Sodium (Docusate Sodium 100 Mg Cap) 100 mg PO BID PRN PRN Reason: Constipation Last Admin: 04/17/21 20:37 Dose: 100 mg Documented by: Ephedrine Sulfate (Ephedrine 50 Mg/Ml Sdv) 5 mg IVPUSH ASDIRECTED PRN PRN Reason: Hypotension Famotidine (Famotidine 20 Mg Tab) 20 mg PO Q12H PRN PRN Reason: Heartburn Last Admin: 04/16/21 08:35 Dose: 20 mg Documented by: Fentanyl (Fentanyl 100 Mcg/2 Ml Sdv) 100 mcg EPIDUR Q3H PRN PRN Reason: Pain Last Admin: 04/16/21 11:26 Dose: 100 mcg Documented by: Fentanyl/Bupivacaine HCl (Bupivacaine/Fentanyl/Ns 100 Ml Bag) 100 ml EPIDUR ASDIRECTED PRN PRN Reason: Pain Last Admin: 04/16/21 11:26 Dose: 100 ml Documented by: Oxytocin/Lactated Ringer's (Pitocin In Lr 10 Units/1,000 Ml) 10 unit in 1,000 mls @ 12 mls/hr IV TITRATE STEPHANIE; Protocol Last Titration: 04/16/21 15:58 Dose: 166.5 munits/min, 999 mls/hr Documented by: Oxytocin/Lactated Ringer's (Pitocin In Lr 10 Units/1,000 Ml) 10 unit in 1,000 mls @ 500 mls/hr IV .CONTINUOUS STEPHANIE Last Admin: 04/16/21 16:44 Dose: 500 mls/hr Documented by: Lactated Ringer's (Ringers, Lactated) 1,000 mls @ 100 mls/hr IV ASDIRECTED STEPHANIE Last Admin: 04/16/21 12:32 Dose: 100 mls/hr Documented by: Ibuprofen (Ibuprofen 600 Mg Tab) 600 mg PO Q6H PRN PRN Reason: Mild pain or fever Last Admin: 04/17/21 20:36 Dose: 600 mg Documented by: Lidocaine HCl (Lidocaine 1% 50 Ml Mdv) 20 ml INJECT ONETIME ONE Stop: 04/16/21 08:17 Last Admin: 04/16/21 15:58 Dose: 20 ml Documented by: Lidocaine/Epinephrine (Lidocaine 1.5% With Epinephrine 1:200,000 5 Ml Amp) 5 ml .ROUTE .STK-MED ONE Stop: 04/16/21 10:33 Nalbuphine HCl (Nalbuphine 10 Mg/1 Ml Vial) 10 mg IVPUSH Q2H PRN PRN Reason: Pain Ondansetron HCl (Ondansetron 4 Mg/2 Ml Sdv) 4 mg IVPUSH Q4H PRN PRN Reason: Nausea/Vomiting Last Admin: 04/16/21 11:00 Dose: 4 mg Documented by: Prenat Multivit/Hardy/Iron/Folic Ac ( Multivitamin With Calcium/Folic Acid/Iron Tab) 1 each PO DAILY [facility] Last Admin: 04/18/21 08:16 Dose: 1 each Documented by: Sodium Chloride (Sodium Chloride 0.9% 10 Ml Syringe) 10 ml FLUSH 0900,2100 [facility] Last Admin: 04/16/21 10:20 Dose: Not Given Documented by: Jeniffer Oro (Jeniffer Oro Medicated Pads 40/Jar) 1 pad TOP ASDIRECTED PRN PRN Reason: Perineal Comfort Measure Last Admin: 04/17/21 21:05 Dose: 1 tub Documented by: - Exam General: Reports: Alert, Oriented, No Acute Distress HEENT: Reports: Pupils Equal, Mucous Membr. Moist/[place] Neck: Reports: Supple Lungs: Reports: Normal Respiratory Effort Cardiovascular: Reports: Regular Rate, Regular Rhythm GI/Abdominal Exam: Normal Bowel Sounds, Soft (Female) Exam: Fundal Height (2 fingers below U), Vaginal Bleeding Rectal (Female) Exam: Deferred Back Exam: Reports: Normal Inspection (No bruising at epidural site), Full Range of Motion Extremities: Normal Inspection, Normal Range of Motion, Non-Tender, No Pedal Edema Skin: Reports: Warm, Dry, Intact Wound/Incisions: Reports: Healing Well Neurological: Reports: No New Focal Deficit Psy/Mental Status: Reports: Alert, Normal Affect, Normal Mood
== END 2021-04-18 10:40 | disposition home or self-care (01) | DRG 807 ==
LOC: JD.OB 06:56 → OBSVTOIN 15:48 → JD.OB 15:49
PROVIDERS: ADMIT Family Medicine; ATTEND Family Medicine
PROC: 10907ZC Drainage of Amniotic Fluid, Therapeutic from Products of Conception, Via Natural or Artificial Opening (ICD-10-PCS; principal; 2021-04-16)
PROC: 10E0XZZ Delivery of Products of Conception, External Approach (ICD-10-PCS; 2021-04-16)
PROC: 0KQM0ZZ Repair Perineum Muscle, Open Approach (ICD-10-PCS; 2021-04-16)
PROC: 3E033VJ Introduction of Other Hormone into Peripheral Vein, Percutaneous Approach (ICD-10-PCS; 2021-04-16)
PROC: 3E0R3BZ Introduction of Anesthetic Agent into Spinal Canal, Percutaneous Approach (ICD-10-PCS; 2021-04-16)
PROC: 3E0R3BZ Introduction of Anesthetic Agent into Spinal Canal, Percutaneous Approach (ICD-10-PCS; 2021-04-16)
DX: O77.0 Labor and delivery complicated by meconium in amniotic fluid (principal); Z37.0 Single live birth; Z3A.39 39 weeks gestation of pregnancy; O70.1 Second degree perineal laceration during delivery
CPT/HCPCS: 01967; 36415; 51702; 59025; 59409; 80306; 85027; 86592; 86850; 86900; 86901; A9270-GY; J2001; J2405; J2590; J3010; J7120

== ENCOUNTER 2023-05-13 18:48 | Inpatient (IN) | payer OTHER ==
[2023-05-13] MEDS ORDERED: Sodium Chloride 0.9% 10 ML Syringe FLUSH PRN (20:31)
[2023-05-13] MEDS ORDERED: Lidocaine 1% 50 ML MDV INJECT PRN (20:31)
[2023-05-13] MEDS ORDERED: Ondansetron 4 MG/2 ML SDV IVPUSH PRN (20:31)
[2023-05-13] MEDS ORDERED: Nalbuphine HCl 10 MG/ 1ML Amp IVPUSH PRN (20:31)
[2023-05-13] MEDS ORDERED: Oxytocin/Lactated Ringers 30 UNIT/500 ML BAG IV SCH (20:45)
[2023-05-13] MEDS ORDERED: Lactated Ringers 1,000 ML IV SCH (20:45)
[2023-05-13 20:49] LABS: BASOPHILS ABSOLUTE AUTO 0.1 K/mm3 (0.0-0.2); BASOPHILS PERCENT AUTO 0.4 % (0.0-1.0); EOSINOPHILS ABSOLUTE AUTO 0.1 K/mm3 (0.0-0.4); EOSINOPHILS PERCENT AUTO 0.3 % (0.0-6.0); HEMATOCRIT 38.3 % (37.0-47.0); HEMOGLOBIN 12.7 gm/dl (12.0-16.0); IMMATURE GRAN ABSOLUTE AUTO 0.48 K/mm3 (0.00-0.05); IMMATURE GRAN PERCENT AUTO 2.4 % (0.0-0.4); LYMPHOCYTES ABSOLUTE AUTO 2.2 K/mm3 (1.0-4.8); LYMPHOCYTES PERCENT AUTO 10.9 % (24.0-44.0); MEAN CORPUSCULAR HEMOGLOBIN 28.6 pg (28.0-32.0); MEAN CORPUSCULAR HGB CONC 33.2 g/dl (32.0-36.0); MEAN CORPUSCULAR VOLUME 86.3 fl (83.0-99.0); MEAN PLATELET VOLUME 10.3 fl (9.4-12.3); MONOCYTES ABSOLUTE AUTO 1.2 K/mm3 (0.0-0.8); NEUTROPHILS ABSOLUTE AUTO 15.7 K/mm3 (1.8-7.7); NRBC ABSOLUTE 0.02 (0.00-0.02); NRBC PERCENT 0.1 % (0.0-0.2); PLATELET COUNT,PLT 261 K/mm3 (150-400); RED BLOOD CELL COUNT 4.44 M/mm3 (4.10-5.30); WHITE BLOOD CELL COUNT,WBC 19.64 K/mm3 (3.9-11.3)
[2023-05-13] MEDS ORDERED: Sodium Chloride 0.9% 10 ML Syringe FLUSH SCH (21:00)
[2023-05-14] MEDS ORDERED: Witch Hazel Medicated Pads 40/Jar TOP PRN (03:26)
[2023-05-14] MEDS ORDERED: Benzocaine/Menthol 20%-0.5% Spray 78 GM Cannister TOP PRN (03:26)
[2023-05-14] MEDS ORDERED: Ibuprofen 600 MG Tab PO SCH (03:26)
[2023-05-14] MEDS ORDERED: Acetaminophen 325 MG Tab PO PRN (03:26)
[2023-05-14] MEDS ORDERED: Docusate Sodium 100 MG Cap PO PRN (03:26)
[2023-05-14] MEDS: Ibuprofen 600 MG Tab PO SCH ×2 (04:40→10:36)
[2023-05-14] MEDS ORDERED: Prenatal Multivitamin with Calcium/Folic Acid/Iron Tab PO SCH (09:00)
== END 2023-05-14 15:00 | disposition home or self-care (01) | DRG 807 ==
LOC: JD.OBCHECK 18:48 → JD.OB 18:51 → JD.OBCHECK 20:30 → JD.OB 20:31 → OBSVTOIN 05-14 02:34 → JD.OB 05-14 02:35
PROVIDERS: ADMIT Family Medicine; ATTEND Family Medicine
PROC: 10E0XZZ Delivery of Products of Conception, External Approach (ICD-10-PCS; principal; 2023-05-14)
PROC: 10907ZC Drainage of Amniotic Fluid, Therapeutic from Products of Conception, Via Natural or Artificial Opening (ICD-10-PCS; 2023-05-14)
PROC: 3E033VJ Introduction of Other Hormone into Peripheral Vein, Percutaneous Approach (ICD-10-PCS; 2023-05-14)
DX: O80 Encounter for full-term uncomplicated delivery (principal); Z37.0 Single live birth; Z3A.38 38 weeks gestation of pregnancy; Z98.49 Cataract extraction status, unspecified eye
CPT/HCPCS: 36415; 59025; 59409; 85025; 86592; A9270-GY; J7999